=== PATIENT | female | born 1965 | race Caucasian/White ===

== ENCOUNTER 2018-07-26 11:41 | Day surgery (SDC) | payer BC ==
[2018-07-26] MEDS ORDERED: ONDANSETRON 4 MG INJ IV (15:30)
[2018-07-26] MEDS ORDERED: hydrALAzine 20 MG INJ IV (15:30)
[2018-07-26] MEDS ORDERED: HYDROmorphONE 1 MG/5 ML IV SYRINGE IV (15:30)
[2018-07-26] MEDS ORDERED: FENTAnyl 50 MCG/ML VIAL IV (15:30)
[2018-07-26] MEDS ORDERED: LABETALOL HCL 20MG INJ IV (15:30)
[2018-07-26] MEDS ORDERED: EPHEDrine 25 MG/5 ML SYG IV (15:30)
[2018-07-26] MEDS ORDERED: PROPOFOL 20 ML (15:52)
== END 2018-07-26 16:00 | disposition home or self-care (01) ==
LOC: GIL 11:41
DX: K44.9 Diaphragmatic hernia without obstruction or gangrene (principal); K29.00 Acute gastritis without bleeding; E11.9 Type 2 diabetes mellitus without complications; I10 Essential (primary) hypertension; J44.9 Chronic obstructive pulmonary disease, unspecified; Z79.84 Long term (current) use of oral hypoglycemic drugs
CPT/HCPCS: 43239; 82962; 88305